=== PATIENT | female | born 1935 | race Caucasian/White ===

== ENCOUNTER 2017-04-01 20:01 | Emergency (ER) | payer MEDICARE, OTHER ==
[~2017-04-01] VITALS: Ht 165.1 cm; Wt 72.6 kg
[~2017-04-01 20:01] MED LIST: CLOP75TA2 PO; LEVO50TA8 PO; LISI5TAB45 PO; MEMA10TA PO; MUPI1OIN NS; ROSU10TA PO
--- NOTE | 2017-04-01 20:06 | NUR ---
PT BIBRA FROM HOME TO ER BED 10. PER REPORT PT IS BEEN C/O BEING DIZZY AND WEAK THE WHOLE DAY. PT APPEARS ANXIOUS. GOWNED AND PLACED ON MONITOR. STABLE VITALS. AWAITING MD REARDON.
--- NOTE | 2017-04-01 20:16 | NUR ---
DR CHANG AT BEDSIDE FOR EVAL.
--- NOTE | 2017-04-01 20:26 | NUR ---
IV LINE STARTED BLOOD DRAWN AND SENT TO LAB.
[2017-04-01 20:29] LABS: BASOPHILS # (AUTO) 0.1 /CMM (0.0-0.2); BASOPHILS % (AUTO) 1.5 % (0.0-2.0); EOSINOPHILS # (AUTO) 0.2 /CMM (0.0-0.7); HEMATOCRIT 39 % (33-45); HEMOGLOBIN 13.1 g/dL (11.5-14.8); LYMPHOCYTES # (AUTO) 2.1 /CMM (0.8-4.8); MEAN CORPUSCULAR HEMOGLOBIN 33 PG (26.0-33.0); MEAN CORPUSCULAR HGB CONC 34 g/dl (31.0-36.0); MEAN CORPUSCULAR VOLUME 98 fL (82-100); MONOCYTES # (AUTO) 0.5 /CMM (0.1-1.30); MONOCYTES % (AUTO) 9.2 % (2.0-12.0); NEUTROPHILS # (AUTO) 2.4 /CMM (1.8-8.9); NEUTROPHILS % (AUTO) 46.3 % (43.0-81.0); PLATELET COUNT (AUTO) 328 /CMM (150-450); RDW COEFFICIENT OF VARIATION 13.6 (11.5-15.0); RED BLOOD CELL COUNT(AUTO) 3.98 MIL/uL (4.0-5.2); WHITE BLOOD COUNT (AUTO) 5.3 K/uL (4.3-11.0)
[2017-04-01] MEDS ORDERED: ONDANSETRON HCL/PF 4 MG/2 ML VIAL ONE (20:29)
[2017-04-01] MEDS ORDERED: IV NS 0.9% 1,000 ML BAG IV ONE (20:30)
[2017-04-01] MEDS ORDERED: LORAZEPAM 1 MG TABLET PO ONE (20:30)
[2017-04-01] MEDS ORDERED: LORAZEPAM 1 MG TABLET ONE (20:30)
[2017-04-01] MEDS ORDERED: ONDANSETRON HCL/PF 4 MG/2 ML VIAL IV ONE (20:30)
--- NOTE | 2017-04-01 20:31 | NUR ---
RADIOLOGY AT BEDSIDE FOR CVHEST XRAY.
[2017-04-01 20:39] LABS: CALCIUM, SERUM 9.7 mg/dL (8.5-10.1); CARBON DIOXIDE 27 mmol/L (21-32); CHLORIDE 102 mmol/L (98-107); GLUCOSE 99 mg/dL (74-106); POTASSIUM 4.8 mmol/L (3.5-5.1); SODIUM SERUM 134 mmol/L (136-145); UREA NITROGEN, BLOOD 15 mg/dL (7-18)
[2017-04-01 20:42] LABS: INR 0.86 (0.87-1.13); PROTHROMBIN TIME 8.9 SECS (9.5-12.7)
[2017-04-01 20:46] LABS: ALANINE AMINOTRANSFERASE 24 U/L (12-78); ALBUMIN 3.4 g/dL (3.4-5.0); ALKALINE PHOSPHATASE 129 U/L (46-116); ASPARTATE AMINOTRANSFERASE 34 U/L (15-37); BILIRUBIN,TOTAL 0.2 mg/dL (0.2-1.0); TOTAL PROTEIN, SERUM 8.4 g/dL (6.4-8.2)
[2017-04-01 20:47] LABS: TROPONIN I < 0.017 ng/mL (0.00-0.056)
[2017-04-01 21:07] LABS: APPEARANCE,URINE Clear (CLEAR); BILIRUBIN,URINE Negative (NEGATIVE); BLOOD, URINE Negative Ery/uL (NEGATIVE); COLOR,URINE Yellow (YELLOW); KETONES,URINE Negative (NEGATIVE); LEUKOCYTE ESTERASE ,URINE Negative (NEGATIVE); NITRITE, URINE Negative (NEGATIVE); PH,URINE 7.5 (5.0-8.0); PROTEIN,URINE Negative (NEGATIVE); UGLUCOSE Negative (NEGATIVE); UROBILINOGEN,URINE 0.2 EU/dL (0.2)
--- NOTE | 2017-04-01 21:20 | NUR ---
PT TO RADIOLOGY FOR HEAD CT SCAN VIA [facility].
[2017-04-01 21:27] LABS: THYROID STIMULATING HORMONE 2.624 uIU/mL (0.358-3.74)
[2017-04-01 22:37] VITALS: BP 128/76
--- NOTE | 2017-04-01 22:37 | NUR ---
Patient discharged to home in stable condition. Written and verbal after care instructions given. Patient verbalizes understanding of instruction.IV removed. Catheter intact and site benign. Pressure and 4x4 applied to site. No bleeding noted.
== END 2017-04-01 22:38 | disposition home or self-care (01) ==
LOC: ER 20:04
DX: F41.9 Anxiety disorder, unspecified (principal); I10 Essential (primary) hypertension; R79.1 Abnormal coagulation profile; R51 Headache; Z90.710 Acquired absence of both cervix and uterus
CPT/HCPCS: 36415; 70450; 71010; 80048; 80076; 81001; 84443; 84484; 85025; 85730; 87086; 93005; 96374; 99285; A4606; J2405; J7030; 81000-TC; Z7610

== ENCOUNTER → 2017-05-06 | Emergency (ER) | payer MEDICARE, OTHER ==
[~2017-05-06] VITALS: Ht 154.9 cm; Wt 70.3 kg
[~2017-05-06] MED LIST changes: +IV NS 0.9% 1,000 ML BAG IV ONE
--- NOTE | 2017-05-06 05:35 | NUR ---
PT TO ER BED 6 VIA WC. PT BIB DAUGHTER C/O CP AND "HIGH BLOOD PRESSURE" X 2 HOURS. PT PLACED IN GOWN AND ON COMMERCIAL CENSUS TAKER. VSS/RESP EVEN UNLABORED/NAD NOTED/SKIN WARM AND DRY/DENIES N-V-D/AOX4. MD AT BEDSIDE FOR EVAL.
--- NOTE | 2017-05-06 05:55 | NUR ---
EMT AT BEDSIDE FOR EKG. 20G IV TO R WRIST USING ASEPTIC TECH, BLOOD HANDED OVER TO LAB AT BEDSIDE. IV FLUSHES EASILY WITH NS.
[2017-05-06 06:07] LABS: BASOPHILS % (AUTO) 0.5 % (0.0-2.0); EOSINOPHILS # (AUTO) 0.2 /CMM (0.0-0.7); EOSINOPHILS % (AUTO) 3.3 % (0.0-6.0); HEMATOCRIT 41 % (33-45); HEMOGLOBIN 13.8 g/dL (11.5-14.8); LYMPHOCYTES # (AUTO) 1.5 /CMM (0.8-4.8); LYMPHOCYTES % (AUTO) 26.1 % (20.0-44.0); MEAN CORPUSCULAR HEMOGLOBIN 33 PG (26.0-33.0); MEAN CORPUSCULAR HGB CONC 33 g/dl (31.0-36.0); MEAN CORPUSCULAR VOLUME 98 fL (82-100); MONOCYTES # (AUTO) 0.5 /CMM (0.1-1.30); MONOCYTES % (AUTO) 8.1 % (2.0-12.0); NEUTROPHILS # (AUTO) 3.5 /CMM (1.8-8.9); PLATELET COUNT (AUTO) 284 /CMM (150-450); RED BLOOD CELL COUNT(AUTO) 4.22 MIL/uL (4.0-5.2); WHITE BLOOD COUNT (AUTO) 5.7 K/uL (4.3-11.0)
--- NOTE | 2017-05-06 06:08 | NUR ---
XRAY AT BEDSIDE.
--- NOTE | 2017-05-06 06:14 | NUR ---
MD AT BEDSIDE SPEAKING WITH FAMILY.
[2017-05-06 06:18] LABS: CALCIUM, SERUM 9.3 mg/dL (8.5-10.1); CARBON DIOXIDE 27 mmol/L (21-32); CHLORIDE 106 mmol/L (98-107); GLUCOSE 95 mg/dL (74-106); POTASSIUM 5.3 mmol/L (3.5-5.1); SODIUM SERUM 142 mmol/L (136-145); UREA NITROGEN, BLOOD 14 mg/dL (7-18)
[2017-05-06 06:21] LABS: INR 0.92 (0.87-1.13); PROTHROMBIN TIME 9.6 SECS (9.5-12.7)
[2017-05-06 06:26] LABS: TROPONIN I < 0.017 ng/mL (0.00-0.056)
[2017-05-06 06:59] LABS: APPEARANCE,URINE CLEAR (CLEAR); BILIRUBIN,URINE NEGATIVE (NEGATIVE); BLOOD, URINE TRACE-INTA Ery/uL (NEGATIVE); COLOR,URINE YELLOW (YELLOW); KETONES,URINE NEGATIVE (NEGATIVE); LEUKOCYTE ESTERASE ,URINE TRACE (NEGATIVE); NITRITE, URINE NEGATIVE (NEGATIVE); PROTEIN,URINE NEGATIVE (NEGATIVE); UGLUCOSE NEGATIVE (NEGATIVE); UROBILINOGEN,URINE 0.2 EU/dL (0.2)
[2017-05-06 07:01] LABS: BACTERIA,URINE Few /HPF (None Seen); RBC,URINE 0-3 /HPF (0-2); SQUAMOUS EPITHELIAL CELL,UR Few /HPF (None Seen)
--- NOTE | 2017-05-06 07:27 | NUR ---
IV removed. Catheter intact and site benign. Pressure and 4x4 applied to site. No bleeding noted. Patient discharged to home in stable condition. Written and verbal after care instructions given. Patient verbalizes understanding of instruction. Pt ambulatory with a steady gait.
[2017-05-06 07:29] VITALS: BP 133/81
== END | disposition home or self-care (01) ==
LOC: ER 05:27
DX: I10 Essential (primary) hypertension (principal); G47.00 Insomnia, unspecified; F41.9 Anxiety disorder, unspecified; Z90.710 Acquired absence of both cervix and uterus; Z79.899 Other long term (current) drug therapy
CPT/HCPCS: 36415; 71010; 80048; 81001; 84484; 85025; 85730; 93005; 96360; 99285; A4606 ×2; J7030; 81000-TC; Z7610

== ENCOUNTER 2017-08-08 09:56 | Inpatient (IN) | payer MEDICARE, OTHER ==
[~2017-08-08] VITALS: Ht 157.5 cm; Wt 75.3 kg
[~2017-08-08 09:56] MED LIST changes: +CLOP75TA15 PO; -CLOP75TA2 PO; -IV NS 0.9% 1,000 ML BAG IV ONE
[2017-08-08] MEDS ORDERED: IV NS 0.9% 500 ML BAG IV ONE (10:30)
[2017-08-08 10:32] LABS: BASOPHILS # (AUTO) 0.1 /CMM (0.0-0.2); EOSINOPHILS # (AUTO) 0.1 /CMM (0.0-0.7); EOSINOPHILS % (AUTO) 1.8 % (0.0-6.0); HEMATOCRIT 36 % (33-45); HEMOGLOBIN 12.4 g/dL (11.5-14.8); LYMPHOCYTES % (AUTO) 13.2 % (20.0-44.0); MEAN CORPUSCULAR HEMOGLOBIN 34 PG (26.0-33.0); MEAN CORPUSCULAR HGB CONC 35 g/dl (31.0-36.0); MEAN CORPUSCULAR VOLUME 97 fL (82-100); MONOCYTES # (AUTO) 0.6 /CMM (0.1-1.30); MONOCYTES % (AUTO) 7.4 % (2.0-12.0); NEUTROPHILS % (AUTO) 76.6 % (43.0-81.0); PLATELET COUNT (AUTO) 300 /CMM (150-450); RDW COEFFICIENT OF VARIATION 13.1 (11.5-15.0); RED BLOOD CELL COUNT(AUTO) 3.69 MIL/uL (4.0-5.2); WHITE BLOOD COUNT (AUTO) 7.8 K/uL (4.3-11.0)
[2017-08-08 10:42] LABS: CALCIUM, SERUM 8.8 mg/dL (8.5-10.1); CARBON DIOXIDE 29 mmol/L (21-32); CHLORIDE 103 mmol/L (98-107); GLUCOSE 100 mg/dL (74-106); POTASSIUM 3.9 mmol/L (3.5-5.1); SODIUM SERUM 137 mmol/L (136-145); UREA NITROGEN, BLOOD 14 mg/dL (7-18)
[2017-08-08] MEDS ORDERED: IOHEXOL-350 100 ML VIAL IV ONE (10:43)
[2017-08-08] MEDS ORDERED: CT SWABBABLE VALVE TRANS SET 1 EA INFUS.SET MC ONE (10:43)
[2017-08-08] MEDS ORDERED: IV NS 0.9% 250 ML IV ONE (10:44)
[2017-08-08 10:45] LABS: INR 0.88 (0.85-1.15)
[2017-08-08 10:49] LABS: TROPONIN I < 0.017 ng/mL (0.00-0.056)
[2017-08-08 10:53] LABS: ALANINE AMINOTRANSFERASE 20 U/L (12-78); ALBUMIN 3.1 g/dL (3.4-5.0); ALKALINE PHOSPHATASE 106 U/L (46-116); ASPARTATE AMINOTRANSFERASE 26 U/L (15-37); BILIRUBIN,DIRECT 0.1 mg/dL (0.0-0.2); BILIRUBIN,TOTAL 0.3 mg/dL (0.2-1.0)
[2017-08-08] MEDS ORDERED: LORA0.5T PO (11:26)
[2017-08-08] MEDS ORDERED: DILT240C2 PO (11:26)
[2017-08-08] MEDS ORDERED: PREG75CA PO (11:26)
[2017-08-08] MEDS ORDERED: ESOM40CA PO (11:26)
[2017-08-08] MEDS ORDERED: BUPR300T54 PO (11:26)
[2017-08-08] MEDS ORDERED: ONDANSETRON HCL/PF 4 MG/2 ML VIAL IVP PRN (13:30)
[2017-08-08] MEDS ORDERED: HYDROCODONE/APAP 5/325MG 1 EACH TABLET PO PRN (13:30)
[2017-08-08] MEDS ORDERED: ACETAMINOPHEN 325 MG TABLET PO PRN (13:30)
[2017-08-08] MEDS ORDERED: ZOLPIDEM TARTRATE 5 MG TABLET PO PRN (13:30)
[2017-08-08] MEDS ORDERED: MAGNESIUM HYDROXIDE 30 ML UDC PO PRN (13:30)
[2017-08-08] MEDS ORDERED: MAG HYDROX/AL HYDROX/SIMETH 30 ML UDC PO PRN (13:30)
[2017-08-08 13:58] VITALS: BP 144/67
[2017-08-08] MEDS ORDERED: MORPHINE SULFATE INJ 4 MG/ML DISP.SYRIN IV PRN (14:30)
[2017-08-08] MEDS: ENOXAPARIN SODIUM 40 MG/0.4 ML DISP.SYRIN SQ SCH (14:35)
[2017-08-08 16:00] VITALS: BP 128/69
[2017-08-08] MEDS: PREGABALIN 25 MG CAPSULE PO SCH (17:12)
[2017-08-08 20:00] VITALS: BP 121/62
[2017-08-08] MEDS ORDERED: REGADENOSON 0.4 MG/5 ML DISP.SYRIN IVP ONE (21:00)
[2017-08-09] VITALS: BP 119/60
[2017-08-09 04:00] VITALS: BP 128/60
[2017-08-09 06:42] LABS: BASOPHILS % (AUTO) 0.3 % (0.0-2.0); EOSINOPHILS # (AUTO) 0.1 /CMM (0.0-0.7); EOSINOPHILS % (AUTO) 0.9 % (0.0-6.0); HEMATOCRIT 32 % (33-45); HEMOGLOBIN 11.3 g/dL (11.5-14.8); LYMPHOCYTES # (AUTO) 1.8 /CMM (0.8-4.8); LYMPHOCYTES % (AUTO) 21.3 % (20.0-44.0); MEAN CORPUSCULAR HEMOGLOBIN 34 PG (26.0-33.0); MEAN CORPUSCULAR HGB CONC 35 g/dl (31.0-36.0); MEAN CORPUSCULAR VOLUME 99 fL (82-100); MONOCYTES # (AUTO) 0.8 /CMM (0.1-1.30); MONOCYTES % (AUTO) 10.1 % (2.0-12.0); NEUTROPHILS # (AUTO) 5.6 /CMM (1.8-8.9); NEUTROPHILS % (AUTO) 67.4 % (43.0-81.0); PLATELET COUNT (AUTO) 272 /CMM (150-450); RDW COEFFICIENT OF VARIATION 14.2 (11.5-15.0); RED BLOOD CELL COUNT(AUTO) 3.27 MIL/uL (4.0-5.2); WHITE BLOOD COUNT (AUTO) 8.3 K/uL (4.3-11.0)
[2017-08-09 07:14] LABS: CHOLESTEROL 161 mg/dL (<200); HDL CHOLESTEROL 78 mg/dL (40-60); LDL 81 mg/dL (0-99); THYROID STIMULATING HORMONE 0.304 uIU/mL (0.358-3.74); TRIGLYCERIDES 37 mg/dL (30-150)
[2017-08-09 07:22] LABS: CALCIUM, SERUM 8.3 mg/dL (8.5-10.1); CARBON DIOXIDE 29 mmol/L (21-32); CHLORIDE 102 mmol/L (98-107); CREATININE 0.9 mg/dL (0.6-1.3); GLUCOSE 95 mg/dL (74-106); MAGNESIUM 2.2 mg/dL (1.8-2.4); PHOSPHORUS 3.1 mg/dL (2.5-4.9); POTASSIUM 3.4 mmol/L (3.5-5.1); SODIUM SERUM 137 mmol/L (136-145); UREA NITROGEN, BLOOD 12 mg/dL (7-18)
[2017-08-09] MEDS ORDERED: PANTOPRAZOLE 40 MG TABLET.DR PO SCH (07:30)
[2017-08-09 08:00] VITALS: BP 137/67
[2017-08-09] MEDS ORDERED: DILTIAZEM HCL CD 240 MG PO SCH (09:00)
[2017-08-09] MEDS ORDERED: BUPROPION XL 150 MG TAB.ER.24 PO SCH (09:00)
[2017-08-09] MEDS ORDERED: LEVOTHYROXINE SODIUM 50 MCG TABLET PO SCH (09:00)
[2017-08-09] MEDS: PREGABALIN 25 MG CAPSULE PO SCH ×2 (09:12→16:21)
[2017-08-09] MEDS: ENOXAPARIN SODIUM 40 MG/0.4 ML DISP.SYRIN SQ SCH (09:13)
[2017-08-09] MEDS ORDERED: POTASSIUM CHLORIDE 20 MEQ TAB.PRT.SR PO SCH (10:30)
[2017-08-09 12:00] VITALS: BP 112/56
[2017-08-09] MEDS ORDERED: ASPIRIN 81 MG TAB.CHEW PO SCH (13:30)
[2017-08-09] MEDS ORDERED: ATORVASTATIN 10 MG TABLET PO SCH (22:00)
== END 2017-08-09 18:57 | disposition home or self-care (01) | DRG 206 ==
LOC: ER 09:58 → TELE1 11:42
PROVIDERS: ADMIT Nurse Practitioner Acute Care; ATTEND Nurse Practitioner Acute Care
DX: M94.0 Chondrocostal junction syndrome [Tietze] (principal); S09.90XA Unspecified injury of head, initial encounter; I50.32 Chronic diastolic (congestive) heart failure; I11.0 Hypertensive heart disease with heart failure; F03.90 Unspecified dementia, unspecified severity, without behavioral disturbance, psychotic disturbance, mood disturbance, and anxiety; W01.0XXA Fall on same level from slipping, tripping and stumbling without subsequent striking against object, initial encounter; E03.9 Hypothyroidism, unspecified; E78.5 Hyperlipidemia, unspecified; F32.9 Major depressive disorder, single episode, unspecified; M19.90 Unspecified osteoarthritis, unspecified site; Z87.891 Personal history of nicotine dependence; Z90.710 Acquired absence of both cervix and uterus; Z86.73 Personal history of transient ischemic attack (TIA), and cerebral infarction without residual deficits; F41.9 Anxiety disorder, unspecified; Y92.009 Unspecified place in unspecified non-institutional (private) residence as the place of occurrence of the external cause; E66.9 Obesity, unspecified; Z68.30 Body mass index [BMI] 30.0-30.9, adult; Z71.3 Dietary counseling and surveillance
CPT/HCPCS: 36415; 70450-TC; 71045-TC; 80048-TC; 80061-TC; 80076-TC; 83735-TC; 84100-TC; 84443-TC; 84484-TC; 85025-TC; 85730-TC; 87081-TC; 93307-TC; A4606; A9502; J1650; J2785; J7040; J7050; Q9967; Z7610

== ENCOUNTER 2017-08-15 20:28 | Inpatient (IN) | payer MEDICARE, OTHER ==
[~2017-08-15] VITALS: Ht 157.5 cm; Wt 73.0 kg
[~2017-08-15 20:28] MED LIST changes: +BUPR300T54 PO; -CLOP75TA15 PO; +DILT240C2 PO; +ESOM40CA PO; -LISI5TAB45 PO; +LORA0.5T PO; -MEMA10TA PO; -MUPI1OIN NS; +PREG75CA PO; -ROSU10TA PO
[2017-08-15 21:01] LABS: BASOPHILS # (AUTO) 0.3 /CMM (0.0-0.2); BASOPHILS % (AUTO) 2.4 % (0.0-2.0); EOSINOPHILS # (AUTO) 0.2 /CMM (0.0-0.7); EOSINOPHILS % (AUTO) 1.4 % (0.0-6.0); HEMATOCRIT 34 % (33-45); HEMOGLOBIN 11.9 g/dL (11.5-14.8); LYMPHOCYTES # (AUTO) 1.2 /CMM (0.8-4.8); LYMPHOCYTES % (AUTO) 10.8 % (20.0-44.0); MEAN CORPUSCULAR HEMOGLOBIN 34 PG (26.0-33.0); MEAN CORPUSCULAR HGB CONC 35 g/dl (31.0-36.0); MEAN CORPUSCULAR VOLUME 96 fL (82-100); MONOCYTES # (AUTO) 0.9 /CMM (0.1-1.30); MONOCYTES % (AUTO) 7.9 % (2.0-12.0); NEUTROPHILS # (AUTO) 8.4 /CMM (1.8-8.9); NEUTROPHILS % (AUTO) 77.5 % (43.0-81.0); PLATELET COUNT (AUTO) 428 /CMM (150-450); RED BLOOD CELL COUNT(AUTO) 3.54 MIL/uL (4.0-5.2)
--- NOTE | 2017-08-15 21:02 | NUR ---
PT BIB FAMILY FROM HOME, PT C/O OVERALL CP X 1 WEEK WITH SOB X 1 DAY. FAMILY AT BEDSIDE PT IS PASHTO SPEAKING A/OX4 VSS NAD. WILL CONTINUE TO MONITOR FOR ANY CHANGES DURING THE SHIFT
--- NOTE | 2017-08-15 21:03 | NUR ---
EKG DONE AT BEDSIDE
--- NOTE | 2017-08-15 21:03 | NUR ---
PT OFF TO RADIOLOGY
[2017-08-15 21:14] LABS: CALCIUM, SERUM 8.7 mg/dL (8.5-10.1); CARBON DIOXIDE 25 mmol/L (21-32); CHLORIDE 98 mmol/L (98-107); CREATININE 1.1 mg/dL (0.6-1.3); GLUCOSE 106 mg/dL (74-106); POTASSIUM 4.7 mmol/L (3.5-5.1); SODIUM SERUM 130 mmol/L (136-145); UREA NITROGEN, BLOOD 15 mg/dL (7-18)
[2017-08-15] MEDS ORDERED: INDOMETHACIN 25 MG CAPSULE ONE (21:19)
[2017-08-15 21:20] LABS: INR 0.93 (0.85-1.15)
--- NOTE | 2017-08-15 21:20 | NUR ---
XRAY AT BEDSIDE
[2017-08-15 21:23] LABS: TROPONIN I < 0.017 ng/mL (0.00-0.056)
[2017-08-15] MEDS ORDERED: INDOMETHACIN 25 MG CAPSULE PO ONE (21:30)
--- NOTE | 2017-08-15 22:10 | NUR ---
TELE-1/RIVETING MACHINE OPERATOR TAPE CONTROL PT ARRIVED ACCOMPANIED BY ER STAFF AND SON. PT AMBULATED TO BED 106 WITH STEADY GAIT. ADMISSION DATA GATHERED. VSS AFEBRILE. PT STATES 6/10 CHEST PAIN. PT AND SON EDUCATED ON PLAN OF CARE AND ORIENTED TO ROOM AND CALL LIGHT USE. WILL CONTINUE TO MONITOR CLOSELY.
[2017-08-15 22:23] VITALS: BP 141/69
[2017-08-16] VITALS: BP 129/60
[2017-08-16] MEDS ORDERED: COLC0.6C3 PO (00:25)
[2017-08-16] MEDS ORDERED: MAGNESIUM HYDROXIDE 30 ML UDC PO PRN (00:30)
[2017-08-16] MEDS ORDERED: ONDANSETRON HCL/PF 4 MG/2 ML VIAL IVP PRN (00:30)
[2017-08-16] MEDS ORDERED: ACETAMINOPHEN 325 MG TABLET PO PRN (00:30)
[2017-08-16] MEDS ORDERED: MORPHINE SULFATE INJ 2 MG/ML DISP.SYRIN IV PRN (00:30)
[2017-08-16] MEDS ORDERED: MAG HYDROX/AL HYDROX/SIMETH 30 ML UDC PO PRN (00:30)
--- NOTE | 2017-08-16 00:31 | NUR ---
TELE-1/ASSOCIATE RELATIONS SPECIALIST PT SEEN AND EXAMINED BY NICOLE NOLASCO. ORDERS RECEIVED AND CARRIED OUT.
[2017-08-16] MEDS: ZOLPIDEM TARTRATE 5 MG TABLET PO PRN (00:38)
[2017-08-16] MEDS: HYDROCODONE/APAP 5/325MG 1 EACH TABLET PO PRN ×3 (00:39→20:59)
[2017-08-16 04:00] VITALS: BP 115/64
[2017-08-16 06:40] LABS: TROPONIN I < 0.017 ng/mL (0.00-0.056)
[2017-08-16 06:47] LABS: MAGNESIUM 2.3 mg/dL (1.8-2.4); PHOSPHORUS 3.9 mg/dL (2.5-4.9)
--- NOTE | 2017-08-16 07:14 | NUR ---
ECG TECHNICIAN NOTES RECEIVED PT ON BED SLEEPING. ALERT ORIENTED X3. ON NC 2L SATURATING WELL. ON TELE MONITOR SR. IV ACCESS ON RAC #20 INTACT AND PATENT. HEAD OF BED ELEVATED. SIDE RAILS UP. CALL LIGHT WITHIN REACH. BED ALARM ON. WILL CONTINUE TO MONITOR PT CLOSELY.
[2017-08-16 08:00] VITALS: BP 117/63
[2017-08-16] MEDS: PANTOPRAZOLE 40 MG TABLET.DR PO SCH (08:05)
[2017-08-16] MEDS: PREGABALIN 25 MG CAPSULE PO SCH ×2 (08:05→16:32)
[2017-08-16] MEDS: DILTIAZEM HCL CD 240 MG PO SCH (08:05)
[2017-08-16] MEDS: BUPROPION XL 150 MG TAB.ER.24 PO SCH (08:05)
[2017-08-16] MEDS: LEVOTHYROXINE SODIUM 50 MCG TABLET PO SCH (08:05)
[2017-08-16] MEDS ORDERED: COLCHICINE 0.6 MG TABLET PO SCH (09:00)
[2017-08-16 12:00] VITALS: BP 122/75
[2017-08-16] MEDS ORDERED: IBUPROFEN 400 MG TABLET PO PRN (12:30)
[2017-08-16 16:00] VITALS: BP_SYST 132; BP_SYST 138; BP_DIAS 73; BP_DIAS 82
[2017-08-16] MEDS: COLCHICINE 0.6 MG TABLET PO SCH (16:32)
--- NOTE | 2017-08-16 19:30 | NUR ---
GAGGERMAN INITIAL NOTE PT RECEIVED AWAKE AND ALERT SITTING UP IN BED WITH DAUGHTER AT BEDSIDE. ON 2L OF O2 AND SATURATING WELL. BREATHING EVEN AND UNLABORED. TELE- SINUS RHYTHM 69. IV RAC #20 SL CLEAN, DRY AND FLUSHING WELL. NO FACIAL GRIMACE NOTED AT THIS TIME. CALL LIGHT WITHIN REACH. WILL CONTINUE TO MONITOR.
--- NOTE | 2017-08-16 19:34 | NUR ---
BLOOD COORDINATOR NOTES NO ACUTE CHANGES NOTED, DUE MEDS GIVEN. PROVIDED COMFORT AND SAFETY. WILL ENDORSE TO THE PM NURSE.
[2017-08-16 20:00] VITALS: BP 134/86
[2017-08-16] MEDS: LORAZEPAM 0.5 MG TABLET PO PRN (23:42)
[2017-08-17] VITALS: BP 105/57
[2017-08-17] MEDS: ZOLPIDEM TARTRATE 5 MG TABLET PO PRN ×2 (01:03→22:20)
[2017-08-17] MEDS: HYDROCODONE/APAP 5/325MG 1 EACH TABLET PO PRN (01:03)
[2017-08-17 04:00] VITALS: BP_SYST 136; BP_SYST 141; BP_DIAS 51; BP_DIAS 62
--- NOTE | 2017-08-17 06:39 | NUR ---
PHYSICAL THER CLOSING NOTE PT REMAINED STABLE DURING SHIFT. NO ACUTE DISTRESS NOTED. PAIN MANAGED THROUGHOUT THE SHIFT. ALL NEEDS ATTENDED TO PROMPTLY. CALL LIGHT WITHIN REACH. WILL ENDORSE TO NEXT SHIFT FOR CONTINUITY OF CARE.
[2017-08-17 07:07] LABS: BASOPHILS % (AUTO) 0.3 % (0.0-2.0); EOSINOPHILS # (AUTO) 0.2 /CMM (0.0-0.7); EOSINOPHILS % (AUTO) 2.3 % (0.0-6.0); HEMATOCRIT 33 % (33-45); HEMOGLOBIN 10.9 g/dL (11.5-14.8); LYMPHOCYTES # (AUTO) 1.4 /CMM (0.8-4.8); LYMPHOCYTES % (AUTO) 15.4 % (20.0-44.0); MEAN CORPUSCULAR HEMOGLOBIN 33 PG (26.0-33.0); MEAN CORPUSCULAR HGB CONC 34 g/dl (31.0-36.0); MEAN CORPUSCULAR VOLUME 99 fL (82-100); MONOCYTES # (AUTO) 0.6 /CMM (0.1-1.30); NEUTROPHILS # (AUTO) 6.9 /CMM (1.8-8.9); PLATELET COUNT (AUTO) 400 /CMM (150-450); RED BLOOD CELL COUNT(AUTO) 3.28 MIL/uL (4.0-5.2); WHITE BLOOD COUNT (AUTO) 9.2 K/uL (4.3-11.0)
[2017-08-17 07:24] LABS: CALCIUM, SERUM 8.7 mg/dL (8.5-10.1); CARBON DIOXIDE 23 mmol/L (21-32); CHLORIDE 99 mmol/L (98-107); CREATININE 0.9 mg/dL (0.6-1.3); GLUCOSE 73 mg/dL (74-106); POTASSIUM 4.6 mmol/L (3.5-5.1); SODIUM SERUM 134 mmol/L (136-145); UREA NITROGEN, BLOOD 13 mg/dL (7-18)
[2017-08-17 08:00] VITALS: BP 135/73
--- NOTE | 2017-08-17 08:00 | NUR ---
RN NOTES RECEIVED PATIENT IN THE ROOM, A/O X3, SERBIAN SPEAKER, PATIENT ON 2L NC, V/S TAKEN STABLE, NO ACUTE RESPIRATORY DISTRESS, PATIENT C/O DRY COUGHING, SCHEDULED MEDICATION ADMINISTERED, IV ACCESS ON RIGHT AC AREA INTACT, PATIENT AMBULATORY SELF CARE, DAUGHTER NEXT TO THE BED, NEEDS ATTENDED AND ANTICIPATED, CALL LIGHT WITHIN TO REACH, CONTINUED MONITORING.
[2017-08-17] MEDS ORDERED: LACTULOSE 10 G/15 ML UDC (PYXIS) PO ONE (10:00)
[2017-08-17] MEDS: COLCHICINE 0.6 MG TABLET PO SCH ×2 (10:10→17:09)
[2017-08-17] MEDS: BUPROPION XL 150 MG TAB.ER.24 PO SCH (10:11)
[2017-08-17] MEDS: PANTOPRAZOLE 40 MG TABLET.DR PO SCH (10:11)
[2017-08-17] MEDS: PREGABALIN 25 MG CAPSULE PO SCH ×2 (10:11→17:09)
[2017-08-17] MEDS: IBUPROFEN 400 MG TABLET PO SCH ×2 (10:11→17:09)
[2017-08-17] MEDS: LEVOTHYROXINE SODIUM 50 MCG TABLET PO SCH (10:12)
[2017-08-17] MEDS: DILTIAZEM HCL CD 240 MG PO SCH (10:12)
--- NOTE | 2017-08-17 11:56 | NUR ---
RN NOTES PATIENT IN THE BED NO ACUTE DISTRESS AT THIS TIME, ENCOURAGED TO INCREASE FLUID INTAKE, V/S STABLE, CALL LIGHT WITHIN TO REACH, MEDICATION WERE ADMINISTERED FOR CONSTIPATION EFFECTIVE, DAUGHTER NEXT TO THE BED, CONTINUED MONITORING.
[2017-08-17 12:00] VITALS: BP 127/60
--- NOTE | 2017-08-17 14:44 | NUR ---
RN NOTES ADMINISTERED MAALOX 30 ML PO PRN FOR ACID INDIGESTION, V/S STABLE, CONTINUED MONITORING.
[2017-08-17 16:00] VITALS: BP 133/64
--- NOTE | 2017-08-17 17:10 | NUR ---
RN NOTES ADMINISTERED MILK OF MAGNESIA FOR CONSTIPATION, ENCOURAGED RO INCREASE FLUID INTAKE AND AMBULATE. CONTINUED MONITORING.
--- NOTE | 2017-08-17 18:27 | NUR ---
RN NOTES PATIENT IN THE BED NO ACUTE RESPIRATORY DISTRESS, SR-75, V/S TABLE, ENCOURAGED TO INCREASE FLUID INTAKE AND AMBULATE, PATIENT MED COMPLIANT. CALL LIGHT WITHIN TO REACH. ENDORSED ONCOMING NURSE FOR SARA.
[2017-08-17 20:00] VITALS: BP_SYST 124; BP_SYST 162; BP_DIAS 69; BP_DIAS 72
--- NOTE | 2017-08-17 20:00 | NUR ---
RECEIVING MANAGER NOTES RECEIVED PTS IN BED AWAKE ALERT AND RESPONSIVE ON TELE SR ON THE MONITOR , NO SOB NO DISTRESS NOTED ALL NEEDS ATTENDED TOO CALL LIGHT WITHIN REACH , DAUGHTER AT BEDSIDE UPDATED WITH PTS CONDITION DUE MEDS V/S STABLE AFEBRILE , KEPT PTS CLEAN DRY AND COMFORTABLE
--- NOTE | 2017-08-17 22:00 | NUR ---
CEMENT FINISHING SUPERVISOR NOTES AMBIEN GIVEN ORDERED.
[2017-08-17] MEDS: LORAZEPAM 0.5 MG TABLET PO PRN (22:54)
[2017-08-18] VITALS: BP 134/60
[2017-08-18] MEDS: IBUPROFEN 400 MG TABLET PO SCH ×3 (01:23→16:59)
[2017-08-18 04:00] VITALS: BP 95/51
--- NOTE | 2017-08-18 05:40 | NUR ---
telephone order dispatcher notes pts remains in bed awake responsive , v/s stable afebrile,remains on nc at 2liters sating 97 %no sob no distress noted .will endorse to rn day shift for continuity of care,no significant changed noted.
[2017-08-18 06:27] LABS: BASOPHILS % (AUTO) 0.5 % (0.0-2.0); EOSINOPHILS # (AUTO) 0.2 /CMM (0.0-0.7); EOSINOPHILS % (AUTO) 3.7 % (0.0-6.0); HEMATOCRIT 33 % (33-45); HEMOGLOBIN 11.2 g/dL (11.5-14.8); LYMPHOCYTES # (AUTO) 1.1 /CMM (0.8-4.8); LYMPHOCYTES % (AUTO) 17.1 % (20.0-44.0); MEAN CORPUSCULAR HEMOGLOBIN 34 PG (26.0-33.0); MEAN CORPUSCULAR HGB CONC 34 g/dl (31.0-36.0); MEAN CORPUSCULAR VOLUME 99 fL (82-100); MONOCYTES # (AUTO) 0.6 /CMM (0.1-1.30); MONOCYTES % (AUTO) 10.1 % (2.0-12.0); NEUTROPHILS # (AUTO) 4.3 /CMM (1.8-8.9); NEUTROPHILS % (AUTO) 68.6 % (43.0-81.0); PLATELET COUNT (AUTO) 409 /CMM (150-450); RDW COEFFICIENT OF VARIATION 14.3 (11.5-15.0); RED BLOOD CELL COUNT(AUTO) 3.33 MIL/uL (4.0-5.2); WHITE BLOOD COUNT (AUTO) 6.3 K/uL (4.3-11.0)
[2017-08-18 06:39] LABS: CALCIUM, SERUM 8.8 mg/dL (8.5-10.1); CARBON DIOXIDE 26 mmol/L (21-32); CHLORIDE 99 mmol/L (98-107); GLUCOSE 89 mg/dL (74-106); MAGNESIUM 2.3 mg/dL (1.8-2.4); POTASSIUM 3.9 mmol/L (3.5-5.1); SODIUM SERUM 137 mmol/L (136-145); UREA NITROGEN, BLOOD 12 mg/dL (7-18)
[2017-08-18 08:00] VITALS: BP_SYST 129; BP_SYST 148; BP_DIAS 69; BP_DIAS 70
[2017-08-18] MEDS: COLCHICINE 0.6 MG TABLET PO SCH ×2 (08:52→16:59)
[2017-08-18] MEDS: PREGABALIN 25 MG CAPSULE PO SCH ×2 (08:52→16:59)
[2017-08-18] MEDS: LEVOTHYROXINE SODIUM 50 MCG TABLET PO SCH (08:53)
[2017-08-18] MEDS: PANTOPRAZOLE 40 MG TABLET.DR PO SCH ×2 (08:53→16:58)
[2017-08-18] MEDS: BUPROPION XL 150 MG TAB.ER.24 PO SCH (08:53)
[2017-08-18] MEDS: DILTIAZEM HCL CD 240 MG PO SCH (08:54)
[2017-08-18 12:00] VITALS: BP 115/66
[2017-08-18] MEDS: SUCRALFATE 1 G/10 ML UDC PO SCH ×2 (12:45→16:58)
[2017-08-18] MEDS: HYDROCODONE/APAP 5/325MG 1 EACH TABLET PO PRN ×2 (12:46→21:42)
[2017-08-18 16:00] VITALS: BP 128/67
[2017-08-18 20:00] VITALS: BP_SYST 110; BP_SYST 99; BP_DIAS 53
--- NOTE | 2017-08-18 20:00 | NUR ---
PER DIEM RN NOTES RECEIVED PTS IN BED AWAKE ALERT AND RESPONSIVE ON TELE SR ON THE MONITOR , NO SOB NO DISTRESS NOTED ALL NEEDS ATTENDED , CALL LIGHT WITHIN REACH , DAUGHTER AT BEDSIDE UPDATED WITH PTS CONDITION DUE MEDS V/S STABLE AFEBRILE , KEPT PTS CLEAN DRY AND COMFORTABLE
[2017-08-18] MEDS: ZOLPIDEM TARTRATE 5 MG TABLET PO PRN (21:41)
[2017-08-19] VITALS: BP 105/66
[2017-08-19] MEDS: IBUPROFEN 400 MG TABLET PO SCH ×2 (03:33→09:10)
[2017-08-19 04:00] VITALS: BP 135/68
--- NOTE | 2017-08-19 06:54 | NUR ---
RAW STOCK DRIER TENDER NOTES ENDORSED PTS IN BED AWAKE ALERT AND RESPONSIVE ON TELE SR ON THE MONITOR , NO SOB NO DISTRESS NOTED ALL NEEDS ATTENDED , CALL LIGHT WITHIN REACH , DAUGHTER AT BEDSIDE UPDATED WITH PTS CONDITION DUE MEDS V/S STABLE AFEBRILE , KEPT PTS CLEAN DRY AND COMFORTABLE
[2017-08-19 08:00] VITALS: BP 115/56
[2017-08-19] MEDS: PREGABALIN 25 MG CAPSULE PO SCH (09:07)
[2017-08-19] MEDS: SUCRALFATE 1 G/10 ML UDC PO SCH ×2 (09:07→12:08)
[2017-08-19] MEDS: COLCHICINE 0.6 MG TABLET PO SCH (09:07)
[2017-08-19] MEDS: DILTIAZEM HCL CD 240 MG PO SCH (09:08)
[2017-08-19] MEDS: BUPROPION XL 150 MG TAB.ER.24 PO SCH (09:08)
[2017-08-19] MEDS: HYDROCODONE/APAP 5/325MG 1 EACH TABLET PO PRN (09:08)
[2017-08-19] MEDS: PANTOPRAZOLE 40 MG TABLET.DR PO SCH (09:09)
[2017-08-19] MEDS: LEVOTHYROXINE SODIUM 50 MCG TABLET PO SCH (09:09)
[2017-08-19 12:00] VITALS: BP 120/84
--- NOTE | 2017-08-19 16:20 | NUR ---
RN CLOSING NOTE PATIENT DISCHARGED HOME. PAPERWORK COMPLETED AND SIGNED. IV SITE AND ID REMOVED. NO SKIN ISSUES.
[2017-08-19] MEDS ORDERED: ESOM40CA PO (18:13)
[2017-08-19] MEDS ORDERED: SUCR1ORA PO (18:13)
[2017-08-19] MEDS ORDERED: IBUP-1958 PO (18:13)
[2017-08-19] MEDS ORDERED: COLC0.6T67 PO (18:13)
== END 2017-08-19 16:23 | disposition home or self-care (01) | DRG 315 ==
LOC: ER 20:35 → TELE1 22:04
PROVIDERS: ADMIT Nurse Practitioner Acute Care; ATTEND Nurse Practitioner Acute Care
DX: I30.1 Infective pericarditis (principal); E87.1 Hypo-osmolality and hyponatremia; F03.90 Unspecified dementia, unspecified severity, without behavioral disturbance, psychotic disturbance, mood disturbance, and anxiety; I31.3 Pericardial effusion (noninflammatory); E03.9 Hypothyroidism, unspecified; E66.9 Obesity, unspecified; E78.5 Hyperlipidemia, unspecified; I10 Essential (primary) hypertension; M19.90 Unspecified osteoarthritis, unspecified site; Z86.73 Personal history of transient ischemic attack (TIA), and cerebral infarction without residual deficits; F32.9 Major depressive disorder, single episode, unspecified; F41.9 Anxiety disorder, unspecified; Z68.29 Body mass index [BMI] 29.0-29.9, adult; J40 Bronchitis, not specified as acute or chronic; Z87.891 Personal history of nicotine dependence; Z90.710 Acquired absence of both cervix and uterus
CPT/HCPCS: 36415; 71045-TC; 80048-TC; 83735-TC; 84100-TC; 84484-TC; 85025-TC; 85730-TC; 87081-TC; 93307-TC; 93308-TC; A4606; Z7610

== ENCOUNTER 2017-08-23 19:19 | Inpatient (IN) | payer MEDICARE, OTHER ==
[~2017-08-23] VITALS: Ht 154.9 cm; Wt 69.4 kg
[~2017-08-23 19:19] MED LIST changes: +COLC0.6C3 PO; +COLC0.6T67 PO; +IBUP-1958 PO; +SUCR1ORA PO
--- NOTE | 2017-08-23 19:30 | NUR ---
BIB SOB, C/O SOB TODAY. DX PERICARDIAL EFFUSION X 10 DAYS AGO , NAD NOTED, VSS, RESP EVEN AND UNLABORED, WAITING FOR MD REARDON.
[2017-08-23] MEDS ORDERED: ASPIRIN 325 MG TABLET ONE (20:18)
[2017-08-23 20:28] LABS: CALCIUM, SERUM 9.1 mg/dL (8.5-10.1); CARBON DIOXIDE 25 mmol/L (21-32); CHLORIDE 93 mmol/L (98-107); CREATININE 0.8 mg/dL (0.6-1.3); GLUCOSE 106 mg/dL (74-106); SODIUM SERUM 129 mmol/L (136-145); UREA NITROGEN, BLOOD 11 mg/dL (7-18)
[2017-08-23] MEDS ORDERED: ASPIRIN 325 MG TABLET PO ONE (20:30)
[2017-08-23 20:38] LABS: TROPONIN I < 0.017 ng/mL (0.00-0.056)
[2017-08-23 20:41] LABS: B-TYPE NATRIURETIC PEPTIDE 1403 PG/ML (0-125)
[2017-08-23 21:04] LABS: BASOPHILS % (AUTO) 0.1 % (0.0-2.0); EOSINOPHILS # (AUTO) 0.2 /CMM (0.0-0.7); EOSINOPHILS % (AUTO) 1.5 % (0.0-6.0); HEMATOCRIT 33 % (33-45); HEMOGLOBIN 11.2 g/dL (11.5-14.8); LYMPHOCYTES # (AUTO) 0.7 /CMM (0.8-4.8); MEAN CORPUSCULAR HEMOGLOBIN 33 PG (26.0-33.0); MEAN CORPUSCULAR HGB CONC 34 g/dl (31.0-36.0); MEAN CORPUSCULAR VOLUME 97 fL (82-100); MONOCYTES # (AUTO) 0.7 /CMM (0.1-1.30); MONOCYTES % (AUTO) 5.9 % (2.0-12.0); NEUTROPHILS # (AUTO) 10.6 /CMM (1.8-8.9); NEUTROPHILS % (AUTO) 86.5 % (43.0-81.0); PLATELET COUNT (AUTO) 652 /CMM (150-450); RDW COEFFICIENT OF VARIATION 13.9 (11.5-15.0); RED BLOOD CELL COUNT(AUTO) 3.37 MIL/uL (4.0-5.2); WHITE BLOOD COUNT (AUTO) 12.2 K/uL (4.3-11.0)
--- NOTE | 2017-08-23 21:20 | NUR ---
TELE/ORTHOPEDIC TECHNICIAN; RECEIVED PT FROM ER VIA [facility] FOR ADMISSION ACCOMPANIED BY CHIEF ACCOUNTING OFFICER SURJIT AND OTHER ER MALE STAFF AND PT'S SON JHONNY. PT IS AWAKE, ALERT AND ORIENTED X 3. FARSI SPEAKING WITH VERY LITTLE GERMAN. DENIES PAIN. BREATHING NON LABORED. NO COUGHING NOTED AT THIS TIME. PT'S DX ; ACUTE DYSPNEA SECONDARY TO HEART FAILURE; 2ND DX; CHEST PAIN. HL ON RAC # 20 INTACT AND PATENT. PT PLACED ON LIVESTOCK AGENT. PT INSTRUCTED NOT TO GET OUT OF BED MUST CALL FOR HELP; PT INSTRUCTED HOW TO USE THE CALL LIGHT WHICH WAS ALL INTERPRETED BY THE SON TO HIS MOTHER AND PT UNDERSTOOD. CALL LIGHT WITHIN REACH. SKIN INTACT AND WARM TO TOUCH. BED ON LOWER POSITION AND LOCKED FOR SAFETY. SIDE RAILS X 2 UPPER PART OF BED ARE UP FOR SAFETY. PT WAS ASSISTED TO THE BATHROOM AND SHE VOIDED.WILL CONTINUE TO MONITOR. Addendum: 08/24/17 at 0200 by MALLORY PEÑA LVN PT WAS ADMITTED TO THE FLOOR AT 2220 NOT 2120.
[2017-08-23] MEDS ORDERED: FUROSEMIDE 40 MG/4 ML VIAL ONE (21:57)
[2017-08-23] MEDS ORDERED: FUROSEMIDE 20 MG/2 ML VIAL IV SCH (22:00)
[2017-08-23 22:20] VITALS: BP 129/71
[2017-08-23] MEDS ORDERED: MAGNESIUM HYDROXIDE 30 ML UDC PO PRN (23:30)
[2017-08-23] MEDS ORDERED: LORAZEPAM 0.5 MG TABLET PO PRN (23:30)
[2017-08-23] MEDS ORDERED: MAG HYDROX/AL HYDROX/SIMETH 30 ML UDC PO PRN (23:30)
[2017-08-23] MEDS ORDERED: ACETAMINOPHEN 325 MG TABLET PO PRN (23:30)
--- NOTE | 2017-08-23 23:40 | NUR ---
TELE/SPECIAL EDUCATION KINDERGARTEN TEACHER; PT ON SR 97.
[2017-08-24] VITALS: BP 131/63
--- NOTE | 2017-08-24 00:30 | NUR ---
TELE/BREAKER HAND; PT ASKED FOR SLEEPING PILL. AMBIEN 5 MG PO HS PRN GIVEN WITH WATER. PT REMINDED WHEN SHE WANTS TO GO TO THE BATHROOM MUST CALL FOR HELP AND CALL LIGHT WITHIN REACH. WILL CONTINUE TO MONITOR.
[2017-08-24] MEDS: ZOLPIDEM TARTRATE 5 MG TABLET PO PRN (00:33)
--- NOTE | 2017-08-24 02:25 | NUR ---
TELE/MARKETING GRAPHICS SPECIALIST; PT C/O PAIN RT SIDE OF HER NECK. AT THIS TIME PT USING THE BEDSIDE COMMODE WITH BLOCK ENGRAVER'S HELP; PT VOIDED. ASSISTED BACK TO BED. ALSO NOTED PT IS COUGHING DRY COUGH. TYLENOL 650 MG PO Q6 PRN GIVEN . WILL CONTINUE TO MONITOR.
[2017-08-24 04:00] VITALS: BP 123/67
[2017-08-24 06:26] LABS: APPEARANCE,URINE CLEAR (CLEAR); BILIRUBIN,URINE NEGATIVE (NEGATIVE); BLOOD, URINE 1+ Ery/uL (NEGATIVE); COLOR,URINE YELLOW (YELLOW); KETONES,URINE NEGATIVE (NEGATIVE); LEUKOCYTE ESTERASE ,URINE NEGATIVE (NEGATIVE); NITRITE, URINE NEGATIVE (NEGATIVE); PH,URINE 5.5 (5.0-8.0); PROTEIN,URINE NEGATIVE (NEGATIVE); UGLUCOSE NEGATIVE (NEGATIVE); UROBILINOGEN,URINE 0.2 EU/dL (0.2)
[2017-08-24 06:31] LABS: BASOPHILS # (AUTO) 0.1 /CMM (0.0-0.2); BASOPHILS % (AUTO) 0.6 % (0.0-2.0); EOSINOPHILS # (AUTO) 0.2 /CMM (0.0-0.7); HEMATOCRIT 30 % (33-45); HEMOGLOBIN 10.3 g/dL (11.5-14.8); LYMPHOCYTES # (AUTO) 1.2 /CMM (0.8-4.8); LYMPHOCYTES % (AUTO) 11.2 % (20.0-44.0); MEAN CORPUSCULAR HEMOGLOBIN 33 PG (26.0-33.0); MEAN CORPUSCULAR HGB CONC 34 g/dl (31.0-36.0); MEAN CORPUSCULAR VOLUME 97 fL (82-100); MONOCYTES # (AUTO) 0.8 /CMM (0.1-1.30); NEUTROPHILS # (AUTO) 8.1 /CMM (1.8-8.9); NEUTROPHILS % (AUTO) 78.2 % (43.0-81.0); PLATELET COUNT (AUTO) 595 /CMM (150-450); RDW COEFFICIENT OF VARIATION 13.9 (11.5-15.0); RED BLOOD CELL COUNT(AUTO) 3.12 MIL/uL (4.0-5.2); WHITE BLOOD COUNT (AUTO) 10.3 K/uL (4.3-11.0)
--- NOTE | 2017-08-24 06:35 | NUR ---
TELE/FINAL INSPECTOR MOTORCYLES; PT SLEPT FAIRLY. DENIES CHEST PAIN AT THIS TIME. VOIDING. PT ON SR 65. COUGHED OCCASIONALLY.PT ON DVT PUMP TO BOTH LOWER LEGS. BREATHING NON LABORED. WILL CONTINUE TO MONITOR. WILL ENDORSE TO THE DAY SHIFT NURSE FOR CONTINUITY OF CARE.
[2017-08-24 06:50] LABS: TROPONIN I < 0.017 ng/mL (0.00-0.056)
[2017-08-24 06:56] LABS: CALCIUM, SERUM 8.4 mg/dL (8.5-10.1); CARBON DIOXIDE 24 mmol/L (21-32); CHLORIDE 94 mmol/L (98-107); CREATININE 0.9 mg/dL (0.6-1.3); GLUCOSE 96 mg/dL (74-106); MAGNESIUM 1.6 mg/dL (1.8-2.4); PHOSPHORUS 3.3 mg/dL (2.5-4.9); POTASSIUM 3.5 mmol/L (3.5-5.1); SODIUM SERUM 131 mmol/L (136-145); UREA NITROGEN, BLOOD 11 mg/dL (7-18)
[2017-08-24 07:27] LABS: BACTERIA,URINE Rare /HPF (None Seen); SQUAMOUS EPITHELIAL CELL,UR Few /HPF (None Seen); WBC,URINE 0-2 /HPF (0-3)
--- NOTE | 2017-08-24 07:30 | NUR ---
RN OPENING NOTES RECEIVED PT. PT IS STABLE AND SLEEPING IN BED. NO S/S OF RESP DISTRESS OR SOB. PT IS ON 2L O2 VIA NC. PT DOES NOT APPEAR TO BE IN PAIN AT THIS TIME. TELE MONITOR IN PLACE READING SR AT APPROXIMATELY 65 BPM. IV ACCESS LOCATED ON RIGHT AC 20 G CURRENTLY SL. PT TO HAVE CARDIAC CONSULT TODAY 08/24/17. SAFETY MEASURES IN PLACE, CALL LIGHT WITHIN REACH. WILL CONTINUE TO MONITOR.
[2017-08-24 08:00] VITALS: BP 128/65
[2017-08-24] MEDS ORDERED: POTASSIUM CHLORIDE 20 MEQ POWDER PACKET PO ONE (08:00)
[2017-08-24] MEDS ORDERED: IBUPROFEN 400 MG TABLET PO PRN (08:30)
[2017-08-24] MEDS: BUPROPION XL 150 MG TAB.ER.24 PO SCH (08:45)
[2017-08-24] MEDS: PREGABALIN 25 MG CAPSULE PO SCH ×2 (08:45→16:35)
[2017-08-24] MEDS: PANTOPRAZOLE 40 MG TABLET.DR PO SCH (08:45)
[2017-08-24] MEDS: SUCRALFATE 1 G/10 ML UDC PO SCH ×3 (08:45→16:36)
[2017-08-24] MEDS: DILTIAZEM HCL CD 240 MG PO SCH (08:47)
[2017-08-24] MEDS: LEVOTHYROXINE SODIUM 50 MCG TABLET PO SCH (08:48)
[2017-08-24] MEDS: Magnesium 1GM/D5W 100ML PREMIX 100 ML IV SCH ×4 (08:49→11:50)
[2017-08-24] MEDS: COLCHICINE 0.6 MG TABLET PO SCH ×2 (08:49→16:35)
[2017-08-24] MEDS: IBUPROFEN 400 MG TABLET PO SCH ×2 (08:53→16:35)
[2017-08-24] MEDS ORDERED: COLCHICINE 0.6 MG TABLET PO SCH (09:00)
[2017-08-24] MEDS ORDERED: FUROSEMIDE 20 MG TABLET PO SCH (09:00)
--- NOTE | 2017-08-24 10:36 | NUR ---
RN NOTES CARDIAC ECHO PERFORMED. WILL F/U WITH MD ACOSTA WHEN REPORT IS COMPLETED, REQUESTED.
[2017-08-24 12:00] VITALS: BP 124/65
[2017-08-24 16:00] VITALS: BP 124/60
[2017-08-24] MEDS: FUROSEMIDE 20 MG/2 ML VIAL IV SCH (16:36)
--- NOTE | 2017-08-24 18:50 | NUR ---
RN CLOSING NOTE PT IN BED RESTING. NO S/S OF RESP DISTRESS OR SOB. PT IS ON TELE MONITOR, READING SR AT 60-70 BPM. PT DOES NOT APPEAR TO BE IN PAIN. ECHO REVEALED EFFUSION, REQUIRING DIURESIS OF EXCESS FLUID. SAFETY MEASURES IN PLACE, CALL LIGHT WITHIN REACH. WILL ENDORSE TO ASSEMBLER MOVEMENT FOR SARA.
--- NOTE | 2017-08-24 18:52 | NUR ---
RN CLOSING NOTE PT IN BED RESTING. NO S/S OF RESP DISTRESS OR SOB. NO C/O PAIN AT THIS TIME. PT SCHEDULED FOR HD TOMORROW 08/25/17. RECEIVED REQUEST FROM DIALYSIS CENTER TO ATTAIN PSYCH EVAL FOR PT. SAFETY MEASURES IN PLACE, CALL LIGHT IN REACH. WILL ENDORSE TO STAVE JOINTER FOR SARA. Addendum: 08/24/17 at 1856 by GURPREET BEVERLY PLEASE DISREGARD THIS NOTE, WRONG PATIENT.
--- NOTE | 2017-08-24 19:35 | NUR ---
SURGICAL NURSE NOTE RECEIVED PATIENT FROM DAY SHIFT, PATIENT IS ALERT AND ORIENTEDX3, FARSI SPEAKER, DENIES RESPIRATORY OR CHEST PAIN AT THIS TIME. IV ON RIGHT AC IS PATENT AND INTACT, HL ONLY. TELE 63. SRX2, BED IN LOW POSITION, CALL LIGHT WITHIN REACH, WILL CONTINUE TO MONITOR PATIENT.
[2017-08-24 20:00] VITALS: BP 131/66
[2017-08-24] MEDS: MORPHINE SULFATE INJ 2 MG/ML DISP.SYRIN IV PRN (23:06)
--- NOTE | 2017-08-24 23:14 | NUR ---
INDUSTRIAL CHEMISTRY TEACHER NOTE PATIENT COMPLAINS OF RIGHT CHEST PAIN 02/11. MORPHINE 4MG IVP GIVEN. WILL REASSESS HER PAIN.
[2017-08-25] VITALS: BP 132/70
[2017-08-25] MEDS: IBUPROFEN 400 MG TABLET PO SCH ×3 (00:27→16:42)
[2017-08-25 04:00] VITALS: BP 130/72
--- NOTE | 2017-08-25 06:35 | NUR ---
DIALER NOTE PATIENT IS RESTING IN BED COMFORTABLY, NO FACIAL GRIMACE OR RESPIRATORY DISTRESS NOTED. IV ON RIGHT WRIST IS PATENT AND INTACT. ALL DUE MEDS GIVEN, NO ACUTE EVENT NOTED THROUGHOUT THE SHIFT. WILL ENDORSE TO DAY SHIFT NURSE FOR SARA.
[2017-08-25 07:02] VITALS: BP 129/72
[2017-08-25 07:12] LABS: BASOPHILS % (AUTO) 0.4 % (0.0-2.0); EOSINOPHILS # (AUTO) 0.3 /CMM (0.0-0.7); EOSINOPHILS % (AUTO) 2.8 % (0.0-6.0); HEMATOCRIT 34 % (33-45); HEMOGLOBIN 11.2 g/dL (11.5-14.8); LYMPHOCYTES # (AUTO) 1.4 /CMM (0.8-4.8); LYMPHOCYTES % (AUTO) 14.4 % (20.0-44.0); MEAN CORPUSCULAR HEMOGLOBIN 32 PG (26.0-33.0); MEAN CORPUSCULAR HGB CONC 33 g/dl (31.0-36.0); MEAN CORPUSCULAR VOLUME 98 fL (82-100); MONOCYTES # (AUTO) 0.7 /CMM (0.1-1.30); MONOCYTES % (AUTO) 7.6 % (2.0-12.0); NEUTROPHILS # (AUTO) 7.2 /CMM (1.8-8.9); NEUTROPHILS % (AUTO) 74.8 % (43.0-81.0); PLATELET COUNT (AUTO) 612 /CMM (150-450); RED BLOOD CELL COUNT(AUTO) 3.48 MIL/uL (4.0-5.2); WHITE BLOOD COUNT (AUTO) 9.6 K/uL (4.3-11.0)
[2017-08-25 07:22] LABS: CALCIUM, SERUM 8.7 mg/dL (8.5-10.1); CARBON DIOXIDE 26 mmol/L (21-32); CHLORIDE 93 mmol/L (98-107); CREATININE 1.1 mg/dL (0.6-1.3); GLUCOSE 84 mg/dL (74-106); POTASSIUM 3.9 mmol/L (3.5-5.1); SODIUM SERUM 129 mmol/L (136-145); UREA NITROGEN, BLOOD 13 mg/dL (7-18)
--- NOTE | 2017-08-25 07:31 | NUR ---
TELE/RN OPENING NOTE PATIENT IN BED AWAKE. ALERT AND ORIENTED X4. DENIES SOB. RESPIRATION REGULAR AND UNLABORED. DENIES PAIN. PATIENT IN NO APPARENT DISTRESS. PATIENT ON MONITOR AND READING SR AT 60S. R WRIST G 22 PATENT. BED LOW AND LOCKED. SIDE RAILS UP X3. ENCOURAGED TO PRESS THE CALL LIGHT FOR ASSISTANCE. CALL LIGHT WITHIN REACH. WILL CONTINUE TO MONITOR.
[2017-08-25] MEDS: LEVOTHYROXINE SODIUM 50 MCG TABLET PO SCH (08:34)
[2017-08-25] MEDS: PANTOPRAZOLE 40 MG TABLET.DR PO SCH (08:34)
[2017-08-25] MEDS: DILTIAZEM HCL CD 240 MG PO SCH (08:35)
[2017-08-25] MEDS: SUCRALFATE 1 G/10 ML UDC PO SCH ×3 (08:35→16:43)
[2017-08-25] MEDS: FUROSEMIDE 20 MG/2 ML VIAL IV SCH ×2 (08:35→16:42)
[2017-08-25] MEDS: BUPROPION XL 150 MG TAB.ER.24 PO SCH (08:35)
[2017-08-25] MEDS: COLCHICINE 0.6 MG TABLET PO SCH ×2 (08:35→16:42)
[2017-08-25] MEDS: PREGABALIN 25 MG CAPSULE PO SCH ×2 (09:18→16:42)
[2017-08-25] MEDS: MORPHINE SULFATE INJ 2 MG/ML DISP.SYRIN IV PRN (12:17)
[2017-08-25 16:00] VITALS: BP 132/69
[2017-08-25] MEDS: ONDANSETRON HCL/PF 4 MG/2 ML VIAL IVP PRN (16:39)
--- NOTE | 2017-08-25 18:43 | NUR ---
MS/RN CLOSING NOTE PATIENT ALERT AND ORIENTED X4. DENIES SOB AT THIS TIME. RESPIRATION REGULAR AND UNLABORED. O2 SAT AT 96% OXYGEN AT 2L/MIN VIA NASAL CANNULA. DENIES PAIN AT THIS TIME. LEFT HAND G 22 PATENT. PATIENT ADULATORY AND CONTINENT. ASSISTED WITH RESTROOM. ABLE TO VOID FREELY. BOWEL MOVEMENT X1. BED LOW AND LOCKED. SIDE RAILS UP X2. CALL LIGHT WITHIN REACH. WILL ENDORSE TO INSPECTING MACHINE ADJUSTER.
--- NOTE | 2017-08-25 19:40 | NUR ---
MS RN NOTE RECEIVED PATIENT FROM DAY SHIFT, PATIENT IS ALERT AND ORIENTEDX3, ON OXYGEN 2L/MIN, DENIES RESPIRATORY DISTRESS OR PAIN ON HER CHEST AT THIS TIME. IV ON LEFT HAND IS PATENT AND INTACT, HL ONLY. SRX2, BED IN LOW POSITION, CALL LIGHT WITHIN REACH, WILL CONTINUE TO MONITOR PATIENT.
[2017-08-25 20:00] VITALS: BP 107/63
[2017-08-25] MEDS: ZOLPIDEM TARTRATE 5 MG TABLET PO PRN (22:26)
--- NOTE | 2017-08-25 22:35 | NUR ---
MS RN NOTE PATIENT REQUESTED SLEEP MED, AMBIEN 5MG PO GIVEN. WILL REASSESS EFFECTIVENESS.
--- NOTE | 2017-08-26 06:44 | NUR ---
HIP HOP DANCE INSTRUCTOR NOTE PATIENT IS RESTING IN BED COMFORTABLY, NO FACIAL GRIMACE OR RESPIRATORY DISTRESS NOTED. IV ON LEFT HAND IS PATENT AND INTACT. ALL DUE MEDS GIVEN, NO ACUTE EVENT NOTED THROUGHOUT THE SHIFT. WILL ENDORSE TO DAY SHIFT NURSE FOR SARA. Addendum: 08/26/17 at 0645 by JAZMINE TORRES RN MS SOLARES NOTE
--- NOTE | 2017-08-26 07:15 | NUR ---
MS/RN OPENING NOTE PATIENT ALERT AND ORIENTED X3. DENIES SOB, DENIES PAIN. RESPIRATION REGULAR AND UNLABORED. PATIENT IN NO APPARENT DISTRESS. LEFT HAND G 24 PATENT AND SALINE LOCKED. BED LOW AND LOCKED. SIDE RAILS UP X2. VERBAL CUES PROVIDED TO KEEP SAFETY AWARENESS HIGH. CALL LIGHT WITHIN REACH.
[2017-08-26 08:00] VITALS: BP 127/65
[2017-08-26] MEDS: PREGABALIN 25 MG CAPSULE PO SCH ×2 (08:32→16:55)
[2017-08-26] MEDS: LEVOTHYROXINE SODIUM 50 MCG TABLET PO SCH (08:32)
[2017-08-26] MEDS: FUROSEMIDE 20 MG/2 ML VIAL IV SCH ×2 (08:32→16:55)
[2017-08-26] MEDS: BUPROPION XL 150 MG TAB.ER.24 PO SCH (08:32)
[2017-08-26] MEDS: SUCRALFATE 1 G/10 ML UDC PO SCH ×3 (08:32→16:55)
[2017-08-26] MEDS: COLCHICINE 0.6 MG TABLET PO SCH ×2 (08:32→16:55)
[2017-08-26] MEDS: DILTIAZEM HCL CD 240 MG PO SCH (08:32)
[2017-08-26] MEDS: PANTOPRAZOLE 40 MG TABLET.DR PO SCH (08:32)
[2017-08-26] MEDS: ONDANSETRON HCL/PF 4 MG/2 ML VIAL IVP PRN (12:51)
--- NOTE | 2017-08-26 17:45 | NUR ---
MS/RN CLOSING NOTE PATIENT ALERT AND ORIENTED X3. DENIES SOB AT THIS TIME. BREATHING REGULAR AND UNLABORED. DENIES PAIN AT THIS TIME. PATIENT WITH NO S/S DISTRESS. LEFT HAND G 24 PATENT AND SALINE LOCKED. GOOD AND GENTLE SKIN CARE RENDERED. KEPT CLEAN, DRY AND COMFORTABLE. VERBAL CUES ARE PROVIDED TO KEEP SAFETY AWARENESS HIGH. PATIENT AMBULATORY. MONITORED WHEN PATIENT AMBULATING AND NOTED STABLE GAIT. BED LOW AND LOCKED. SIDE RAILS UP X2. CALL LIGHT WITHIN REACH. WILL ENDORSE TO STORES LABORER.
[2017-08-26 18:52] VITALS: BP 116/72
--- NOTE | 2017-08-26 19:10 | NUR ---
MS/RN NOTES RECEIVED PT. LYING IN BED. PT. IS AWAKE, ALERT AND ORIENTED X3. BREATHING EVEN AND UNLABORED ON ROOM AIR. NO SOB, RESPIRATORY DISTRESS OR COMPLAINTS OF PAIN NOTED AT THIS TIME. PT. WITH LEFT HAND 24 GAUGE IV SALINE LOCK PRESENT, PATENT AND INTACT. PT. WITH FAMILY MEMBER PRESENT AT BEDSIDE. PT. EDUCATED TO USE CALL LIGHT FOR ASSISTANCE BEFORE AMBULATING. PT. VERBALIZED UNDERSTANDING. BED LOCKED AND IN LOWEST POSITION, SIDE RAILS UP X2, BED ALARM ON, CALL LIGHT WITHIN REACH, WILL CONTINUE TO MONITOR.
[2017-08-26 20:00] VITALS: BP 110/60
[2017-08-26] MEDS: ZOLPIDEM TARTRATE 5 MG TABLET PO PRN (22:29)
--- NOTE | 2017-08-27 06:35 | NUR ---
MS/RN NOTES PT. IS LYING IN BED RESTING. BREATHING EVEN AND UNLABORED ON ROOM AIR. NO SOB, RESPIRATORY DISTRESS OR COMPLAINTS OF PAIN NOTED AT THIS TIME. PT. WITH LEFT HAND 24 GAUGE IV SALINE LOCK PRESENT, PATENT AND INTACT. ALL PT. NEEDS MET. BED LOCKED AND IN LOWEST POSITION, SIDE RAILS UP X2, BED ALARM ON, CALL LIGHT WITHIN REACH, WILL ENDORSE TO DAYSHIFT NURSE FOR CONTINUITY OF CARE.
[2017-08-27 07:20] LABS: CALCIUM, SERUM 8.8 mg/dL (8.5-10.1); CARBON DIOXIDE 28 mmol/L (21-32); CHLORIDE 92 mmol/L (98-107); CREATININE 0.9 mg/dL (0.6-1.3); GLUCOSE 85 mg/dL (74-106); MAGNESIUM 1.9 mg/dL (1.8-2.4); POTASSIUM 3.1 mmol/L (3.5-5.1); SODIUM SERUM 131 mmol/L (136-145); UREA NITROGEN, BLOOD 12 mg/dL (7-18)
[2017-08-27 07:27] LABS: EOSINOPHILS # (AUTO) 0.2 /CMM (0.0-0.7); EOSINOPHILS % (AUTO) 2.5 % (0.0-6.0); HEMATOCRIT 30 % (33-45); HEMOGLOBIN 10.4 g/dL (11.5-14.8); LYMPHOCYTES # (AUTO) 1.2 /CMM (0.8-4.8); LYMPHOCYTES % (AUTO) 18.3 % (20.0-44.0); MEAN CORPUSCULAR HEMOGLOBIN 33 PG (26.0-33.0); MEAN CORPUSCULAR HGB CONC 34 g/dl (31.0-36.0); MEAN CORPUSCULAR VOLUME 96 fL (82-100); MONOCYTES # (AUTO) 0.7 /CMM (0.1-1.30); MONOCYTES % (AUTO) 10.9 % (2.0-12.0); NEUTROPHILS # (AUTO) 4.5 /CMM (1.8-8.9); NEUTROPHILS % (AUTO) 68.3 % (43.0-81.0); PLATELET COUNT (AUTO) 607 /CMM (150-450); RDW COEFFICIENT OF VARIATION 14.1 (11.5-15.0); RED BLOOD CELL COUNT(AUTO) 3.18 MIL/uL (4.0-5.2); WHITE BLOOD COUNT (AUTO) 6.6 K/uL (4.3-11.0)
--- NOTE | 2017-08-27 07:31 | NUR ---
MS RN OPENING NOTES. RECEIVED PATIENT AWAKE IN BED IN NO ACUTE SIGNS OF DISTRESS. A/0 X3, VERBALLY RESPONSIVE WITH NO C/O PAIN OR DISCOMFORTS AT THIS TIME. ON ROOM AIR, BREATHING EVEN AND UNLABORED. IV ACCESS ON LEFT HAND G#24 INTACT AND PATEN, FLUSHED EASILY. BED IN LOWEST AND LOCKED POSITION WITH SIDE-RAILS UP X2 AND CALL ADLER WITHIN REACH. WILL CONTINUE TO MONITOR
[2017-08-27] MEDS: PANTOPRAZOLE 40 MG TABLET.DR PO SCH (08:00)
[2017-08-27] MEDS: PREGABALIN 25 MG CAPSULE PO SCH ×2 (08:35→17:11)
[2017-08-27] MEDS: SUCRALFATE 1 G/10 ML UDC PO SCH ×3 (08:35→17:11)
[2017-08-27] MEDS: BUPROPION XL 150 MG TAB.ER.24 PO SCH (08:35)
[2017-08-27] MEDS: LEVOTHYROXINE SODIUM 50 MCG TABLET PO SCH (08:35)
[2017-08-27] MEDS: COLCHICINE 0.6 MG TABLET PO SCH ×2 (08:36→17:11)
[2017-08-27] MEDS: DILTIAZEM HCL CD 240 MG PO SCH (08:36)
[2017-08-27 09:07] VITALS: BP 133/66
--- NOTE | 2017-08-27 10:56 | NUR ---
RN NOTES PATIENT NOTED WITH LOW LEVEL OF POTASSIUM 3.1, REGINA FLEMING MADE AWARE AND ORDERED K DUR 40MEQ. WILL CONTINUE TO MONITOR.
[2017-08-27] MEDS ORDERED: FURO-145 PO (10:57)
[2017-08-27] MEDS ORDERED: Colchicine PO (10:57)
[2017-08-27] MEDS ORDERED: PANT40TA2 PO (10:57)
[2017-08-27] MEDS ORDERED: POTA20TA83 PO (10:57)
--- NOTE | 2017-08-27 10:59 | NUR ---
RN NOTES REGINA FLEMING WITH VERBAL ORDER TO CHECK PT ON 02 VIA N/C AT 2LPM AND WITHOUT 02. SP02 WITH 02 VIA N/C AT LPM 96-97%, WITHOUT 93-96%. PT ALSO FOR PT EVALUATION. WILL CONTINUE TO MONITOR.
[2017-08-27] MEDS ORDERED: POTASSIUM CHLORIDE 20 MEQ TAB.PRT.SR PO ONE (11:00)
--- NOTE | 2017-08-27 11:02 | NUR ---
RN NOTES PT C/O MILD STOMACH UPSET AND GOING TO THE TOILET 3 TIMES WITH SMALL AMOUNT OF YELLOW BROWNISH SEMI-FORM STOOL NOTED. MAALOX GIVEN AND VERBALIZED THAT SHE FELT MUCH BETTER BEFORE. WILL CONTINUE TO MONITOR
--- NOTE | 2017-08-27 12:31 | NUR ---
RN NOTES PATIENT FOR PT EVALUATION TODAY, CALLED PHYSICAL DEPARTMENT AND WAS INFORMED THAT PHYSICAL THERAPIST FANNY IS IN CHARGE OF PT AND SHE'S NOT ON THE HOSPITAL YET. WILL FOLLOW-UP
[2017-08-27] MEDS ORDERED: LOPERAMIDE HCL (2 MG CAP) 2 MG CAPSULE PO PRN (14:30)
--- NOTE | 2017-08-27 14:33 | NUR ---
RN NOTES PT WENT TO THE BATHROOM X4 AND DID SMALL BOWEL MOVEMENT WITH S,ALL PIECES OF LIGHT BROWNISH STOOL, PROFESSOR OF THEATRE BERNADETTE MADE AWARE WITH ORDER TO GIVE LOPERAMIDE 2 MG PO. WILL CARRY OUT ORDER.
[2017-08-27 16:00] VITALS: BP 133/62
--- NOTE | 2017-08-27 16:50 | NUR ---
ADDENDUM: V/S CHECKED BP 123/72 R 18 AND HR 65 SP02 94%.
--- NOTE | 2017-08-27 17:47 | NUR ---
RN NOTES RECEIVED TELEPHONE ORDER FROM FIDELIA FLEMING TO ADD ABX CIPRO 500MG PO BID X 3 DAY S AND LOPERAMIDE 2MG PRN ON DISCHARGE. LABORER [employer] FIDELIA RIVERA SPOKE TO PT'S DAUGHTER KATHERYN THROUGH THE PHONE AND AWARE OF THE ORDER.
--- NOTE | 2017-08-27 18:53 | NUR ---
RN DISCHARGED NOTES PATIENT DISCHARGED HOME IN STABLE CONDITION WITH STABLE V/S. A/O X3, VERBALLY RESPONSIVE AND AMBULATORY WITH WALKER. BELONGINGS CHECKED, COUNTED AND SIGNED FORM BY DAUGHTER. V/S CHECKED AND RECORDED. SKIN IS INTACT. NO PNA AND FLU VACCINES GIVEN TODAY PT RECEIVED THEM ALREADY. PRESCRIPTION GIVEN TO DAUGHTER. EXIT CARE INSTRUCTIONS AND HEALTH TEACHINGS GIVEN TO PT AND 2 DAUGHTERS AND VERBALIZED UNDERSTANDING. PT LEFT UNIT AT 1845 VIA WHEELCHAIR ACCOMPANIED BY IMPORT COORDINATION AND PRODUCTION HEAD AND 2 DAUGHTERS. REGINA FLEMING AND CHARGE NURSE AWARE OF DISCHARGE.
== END 2017-08-27 18:46 | disposition home or self-care (01) | DRG 314 ==
LOC: ER 19:24 → TELE 21:32 → MED 08-25 09:30
PROVIDERS: ADMIT Nurse Practitioner Acute Care; ATTEND Nurse Practitioner Acute Care
DX: I31.9 Disease of pericardium, unspecified (principal); I50.31 Acute diastolic (congestive) heart failure; E86.1 Hypovolemia; E87.1 Hypo-osmolality and hyponatremia; E83.42 Hypomagnesemia; F03.90 Unspecified dementia, unspecified severity, without behavioral disturbance, psychotic disturbance, mood disturbance, and anxiety; I31.3 Pericardial effusion (noninflammatory); I11.0 Hypertensive heart disease with heart failure; E78.5 Hyperlipidemia, unspecified; E03.9 Hypothyroidism, unspecified; E66.9 Obesity, unspecified; F32.9 Major depressive disorder, single episode, unspecified; F41.9 Anxiety disorder, unspecified; Z87.891 Personal history of nicotine dependence; Z90.710 Acquired absence of both cervix and uterus; M19.90 Unspecified osteoarthritis, unspecified site; Z68.28 Body mass index [BMI] 28.0-28.9, adult; D72.829 Elevated white blood cell count, unspecified; Z86.73 Personal history of transient ischemic attack (TIA), and cerebral infarction without residual deficits
CPT/HCPCS: 36415; 71045-TC; 80048-TC; 81000-TC; 83735-TC; 83880; 83935-TC; 84100-TC; 84300-TC; 84484-TC; 85025-TC; 87081-TC; 93307-TC; 94799-TC; A4606; J1940; J2270; J2405; J3475; Z7610

== ENCOUNTER 2017-08-30 22:36 | Emergency (ER) | payer MEDICARE, OTHER ==
[~2017-08-30] VITALS: Ht 154.9 cm; Wt 70.3 kg
[~2017-08-30 22:36] MED LIST changes: -COLC0.6C3 PO; -COLC0.6T67 PO; +Colchicine PO; +FURO-145 PO; +PANT40TA2 PO; +POTA20TA83 PO
--- NOTE | 2017-08-30 22:55 | NUR ---
BIB DAUGHTER, PT C/O CHEST PAIN SINCE SUNDAY S/P D/C FOR [facility] WITH DX OF CHEST PAIN. PT IS AAOX4. PTS' SKIN WNL. PT -N/V/D. RESP EVEN AND UNLABORED. NO S/S OF ACUTE DISTRESS NOTED. PT GOWNED AND PLACED ON MONITOR AND POX. AWAITING MD FOR EVAL.
[2017-08-30 23:57] LABS: BASOPHILS # (AUTO) 0.1 /CMM (0.0-0.2); BASOPHILS % (AUTO) 0.7 % (0.0-2.0); EOSINOPHILS % (AUTO) 2.7 % (0.0-6.0); HEMATOCRIT 35 % (33-45); LYMPHOCYTES # (AUTO) 1.3 /CMM (0.8-4.8); LYMPHOCYTES % (AUTO) 14.3 % (20.0-44.0); MEAN CORPUSCULAR HGB CONC 34 g/dl (31.0-36.0); MEAN CORPUSCULAR VOLUME 96 fL (82-100); MONOCYTES # (AUTO) 0.7 /CMM (0.1-1.30); MONOCYTES % (AUTO) 7.8 % (2.0-12.0); NEUTROPHILS # (AUTO) 6.6 /CMM (1.8-8.9); NEUTROPHILS % (AUTO) 74.5 % (43.0-81.0); PLATELET COUNT (AUTO) 601 /CMM (150-450); RDW COEFFICIENT OF VARIATION 14.2 (11.5-15.0); RED BLOOD CELL COUNT(AUTO) 3.65 MIL/uL (4.0-5.2); WHITE BLOOD COUNT (AUTO) 8.8 K/uL (4.3-11.0)
[2017-08-31] MEDS ORDERED: ASPIRIN 325 MG TABLET PO ONE
[2017-08-31] MEDS ORDERED: MORPHINE SULFATE INJ 2 MG/ML DISP.SYRIN IV ONE
[2017-08-31 00:12] LABS: CALCIUM, SERUM 9.4 mg/dL (8.5-10.1); CARBON DIOXIDE 26 mmol/L (21-32); CHLORIDE 96 mmol/L (98-107); CREATININE 1.1 mg/dL (0.6-1.3); GLUCOSE 114 mg/dL (74-106); SODIUM SERUM 134 mmol/L (136-145); UREA NITROGEN, BLOOD 15 mg/dL (7-18)
[2017-08-31 00:13] LABS: INR 1.03 (0.87-1.13)
[2017-08-31] MEDS ORDERED: MORPHINE SULFATE INJ 2 MG/ML DISP.SYRIN ONE (00:14)
[2017-08-31] MEDS ORDERED: ASPIRIN 325 MG TABLET ONE (00:15)
[2017-08-31 00:16] LABS: TROPONIN I < 0.017 ng/mL (0.00-0.056)
--- NOTE | 2017-08-31 00:16 | NUR ---
TELE 307-2
[2017-08-31 00:25] LABS: B-TYPE NATRIURETIC PEPTIDE 460 PG/ML (0-125)
--- NOTE | 2017-08-31 01:23 | NUR ---
Patient discharged to home in stable condition. Written and verbal after care instructions given. Patient verbalizes understanding of instruction.IV removed. Catheter intact and site benign. Pressure and 4x4 applied to site. No bleeding noted. VSS upon discharge
[2017-08-31 01:24] VITALS: BP 123/70
== END 2017-08-31 01:26 | disposition home or self-care (01) ==
LOC: ER 22:42
DX: R07.89 Other chest pain (principal); I10 Essential (primary) hypertension; Z90.710 Acquired absence of both cervix and uterus
CPT/HCPCS: 36415; 71045-TC; 80048-TC; 83880; 84484-TC; 85025-TC; 85730-TC; 87081-TC; A4606; J2270; Z7610

== ENCOUNTER 2017-09-03 12:10 | Outpatient (CLI) | payer MEDICARE, OTHER ==
[2017-09-03 12:15] VITALS: BP 135/84
== END 2017-09-03 23:59 | disposition home or self-care (01) ==
LOC: MSC 12:10
PROVIDERS: ATTEND Internal Medicine
DX: I31.9 Disease of pericardium, unspecified (principal); I11.0 Hypertensive heart disease with heart failure; I50.33 Acute on chronic diastolic (congestive) heart failure; J96.11 Chronic respiratory failure with hypoxia; F41.8 Other specified anxiety disorders; F03.90 Unspecified dementia, unspecified severity, without behavioral disturbance, psychotic disturbance, mood disturbance, and anxiety; E78.5 Hyperlipidemia, unspecified; E03.9 Hypothyroidism, unspecified; M06.9 Rheumatoid arthritis, unspecified; M10.9 Gout, unspecified; M19.90 Unspecified osteoarthritis, unspecified site; Z99.81 Dependence on supplemental oxygen; Z87.891 Personal history of nicotine dependence

== ENCOUNTER 2018-04-08 17:39 | Emergency (ER) | payer MEDICARE, OTHER ==
[~2018-04-08] VITALS: Ht 152.4 cm; Wt 69.4 kg
--- NOTE | 2018-04-08 17:45 | NUR ---
PT SITTING UP BED 2 C/O FEVER, SHARP ABDOMINAL PAIN /10, NAUSEA, DIARRHEA X 8-9 DAYS PER DAUGHTER. AOX4, RR EVEN AND UNLABORED, VSS. PT MADE COMFORTABLE, AT BEDSIDE. WILL CONT TO MONITOR
[2018-04-08] MEDS ORDERED: MORPHINE SULFATE INJ 2 MG/ML DISP.SYRIN IV ONE (18:30)
[2018-04-08] MEDS ORDERED: IV NS 0.9% 1,000 ML BAG IV ONE (18:30)
[2018-04-08] MEDS ORDERED: ONDANSETRON HCL/PF 4 MG/2 ML VIAL IVP ONE (18:30)
--- NOTE | 2018-04-08 18:30 | NUR ---
Patient is resting comfortably in bed with eyes closed. Easily aroused. VSS.
[2018-04-08] MEDS ORDERED: MORPHINE SULFATE INJ 4 MG/ML DISP.SYRIN ONE (18:33)
[2018-04-08] MEDS ORDERED: ONDANSETRON HCL/PF 4 MG/2 ML VIAL ONE (18:33)
[2018-04-08 18:43] LABS: BASOPHILS # (AUTO) 0.1 /CMM (0.0-0.2); BASOPHILS % (AUTO) 1.2 % (0.0-2.0); EOSINOPHILS % (AUTO) 0.2 % (0.0-6.0); HEMATOCRIT 39 % (33-45); LYMPHOCYTES # (AUTO) 0.7 /CMM (0.8-4.8); LYMPHOCYTES % (AUTO) 9.5 % (20.0-44.0); MEAN CORPUSCULAR HGB CONC 34 g/dl (31.0-36.0); MEAN CORPUSCULAR VOLUME 97 fL (82-100); MONOCYTES # (AUTO) 0.5 /CMM (0.1-1.30); MONOCYTES % (AUTO) 6.9 % (2.0-12.0); NEUTROPHILS # (AUTO) 6.4 /CMM (1.8-8.9); NEUTROPHILS % (AUTO) 82.2 % (43.0-81.0); PLATELET COUNT (AUTO) 284 /CMM (150-450); RED BLOOD CELL COUNT(AUTO) 3.97 MIL/uL (4.0-5.2); WHITE BLOOD COUNT (AUTO) 7.7 K/uL (4.3-11.0)
[2018-04-08 18:56] LABS: CALCIUM, SERUM 8.9 mg/dL (8.5-10.1); CARBON DIOXIDE 29 mmol/L (21-32); CHLORIDE 98 mmol/L (98-107); CREATININE 1.1 mg/dL (0.6-1.3); GLUCOSE 112 mg/dL (74-106); POTASSIUM 3.7 mmol/L (3.5-5.1); SODIUM SERUM 132 mmol/L (136-145); UREA NITROGEN, BLOOD 10 mg/dL (7-18)
[2018-04-08 19:07] LABS: ALANINE AMINOTRANSFERASE 20 U/L (12-78); ALBUMIN 2.8 g/dL (3.4-5.0); ALKALINE PHOSPHATASE 126 U/L (46-116); ASPARTATE AMINOTRANSFERASE 25 U/L (15-37); BILIRUBIN,DIRECT 0.1 mg/dL (0.0-0.2); BILIRUBIN,TOTAL 0.4 mg/dL (0.2-1.0); TOTAL PROTEIN, SERUM 8.3 g/dL (6.4-8.2)
[2018-04-08] MEDS ORDERED: ACETAMINOPHEN 325 MG TABLET ONE (19:21)
--- NOTE | 2018-04-08 19:25 | NUR ---
TAKEN TO CT
[2018-04-08] MEDS ORDERED: IOHEXOL-300 100 ML VIAL IV ONE (19:29)
[2018-04-08] MEDS ORDERED: ACETAMINOPHEN 325 MG TABLET PO ONE (19:30)
[2018-04-08] MEDS ORDERED: IV NS 0.9% 250 ML IV ONE (19:30)
[2018-04-08] MEDS ORDERED: CT SWABBABLE VALVE TRANS SET 1 EA INFUS.SET MC ONE (19:30)
--- NOTE | 2018-04-08 19:40 | NUR ---
BACK TO ROOM FROM CT
[2018-04-08 20:03] LABS: APPEARANCE,URINE Cloudy (CLEAR); BILIRUBIN,URINE Negative (NEGATIVE); BLOOD, URINE Moderate Ery/uL (NEGATIVE); COLOR,URINE Yellow (YELLOW); KETONES,URINE Negative (NEGATIVE); LEUKOCYTE ESTERASE ,URINE Large (NEGATIVE); NITRITE, URINE Negative (NEGATIVE); PROTEIN,URINE 100 mg/dl (NEGATIVE); UGLUCOSE Negative (NEGATIVE); UROBILINOGEN,URINE 0.2 EU/dL (0.2)
[2018-04-08 20:29] LABS: WBC,URINE TOO NUMEROUS TO COUN /HPF (0-3)
[2018-04-08 20:30] LABS: BACTERIA,URINE 1+ /HPF (None Seen); SQUAMOUS EPITHELIAL CELL,UR Few /HPF (None Seen)
--- NOTE | 2018-04-08 20:30 | NUR ---
PLACED PT ON BEDPAN.
[2018-04-08] MEDS ORDERED: CEFTRIAXONE 1GM BAG (ER ONLY) 50 ML IV ONE (20:43)
[2018-04-08] MEDS ORDERED: CEFTRIAXONE 1GM BAG (ER ONLY) 1 GM/50 ML PIGGYBACK IV ONE (21:00)
--- NOTE | 2018-04-08 21:29 | NUR ---
IV removed. Catheter intact and site benign. Pressure and 4x4 applied to site. No bleeding noted. Patient discharged to home in stable condition. Written and verbal after care instructions given. Patient verbalizes understanding of instruction.
[2018-04-08 21:32] VITALS: BP 158/83
== END 2018-04-08 21:33 | disposition home or self-care (01) ==
LOC: ER 17:41
DX: N12 Tubulo-interstitial nephritis, not specified as acute or chronic (principal); R19.7 Diarrhea, unspecified; I10 Essential (primary) hypertension; Z90.710 Acquired absence of both cervix and uterus
CPT/HCPCS: 36415; 71045-TC; 80048-TC; 80076-TC; 81000-TC; 83605-TC; 84484-TC; 85025-TC; 85730-TC; 87040-TC; 87086-TC; 87186-TC; A4606; J0696; J2270; J2405; J7040; J7050; Q9967; Z7610